=== PATIENT | male | born 1945 | race African-American/Black ===

== ENCOUNTER → 2016-06-19 | Outpatient (CLI) | payer MEDICARE, OTHER ==
[~2016-06-19] MED LIST: ALDA2525 PO; ATOR80TA41 PO; LISI-366 PO; LISI40TA PO; MIRA3350 PO; PROS5TAB2 PO; SPIR25TA3 PO; TAMS0.4C67 PO; TRIA0.1O TOP; [UNRECOGNIZED DRUG - SUPPLY]
[2016-06-19 08:59] LABS: AUTOMATED NEUTROPHIL # 2.1 TH/MM3 (1.8-7.7); BASOPHIL % 0.2 % (0.0-2.0); EOSINOPHIL # 0.3 TH/MM3 (0-0.4); EOSINOPHIL % 4.7 % (0.0-4.0); HEMATOCRIT 44.8 % (39.0-51.0); HEMO FLAGS DIFF FINAL; LYMPH % 46.7 % (9.0-44.0); LYMPHOCYTE # 2.6 TH/MM3 (1.0-4.8); MEAN CELL VOLUME 87.6 FL (80.0-100.0); MEAN CORPUSCULAR HEMOGLOBIN 29.7 PG (27.0-34.0); MEAN CORPUSCULAR HGB CONC 33.9 % (32.0-36.0); MONO % 11.7 % (0.0-8.0); NEUT % 36.7 % (16.0-70.0); PLATELET COUNT 250 TH/MM3 (150-450); RED BLOOD COUNT 5.12 MIL/MM3 (4.50-5.90); RED CELL DISTRIBUTION WIDTH 14.2 % (11.6-17.2); WHITE BLOOD COUNT 5.7 TH/MM3 (4.0-11.0)
[2016-06-19 09:31] LABS: BLOOD, URINE NEG (NEG); COMMENT (UR) CULTURE INDICATED; CULTURE IF INDICATED CULTURE INDICATED; GLUCOSE,URINE NEG (NEG); KETONE, URINE NEG (NEG); MUCUS URINE FEW /lpf (OCC); NITRITE,URINE NEG (NEG); SQUAMOUS EPITHELIAL CELL URINE <1 /hpf (0-5); URINE COLOR YELLOW (YELLW/STRAW)
[2016-06-19 09:45] LABS: ALKALINE PHOSPHATASE 73 U/L (45-117); ALT (GPT) 54 U/L (12-78); ANION GAP 8 MEQ/L (5-15); AST (GOT) 33 U/L (15-37); BICARBONATE 27.7 MEQ/L (21.0-32.0); BLOOD UREA NITROGEN 13 MG/DL (7-18); CHLORIDE 103 MEQ/L (98-107); GLOMERULAR FILTRATION RATE 67 ML/MIN (>89); GLUCOSE,FASTING 107 MG/DL (74-99); HDL CHOLESTEROL 42.4 MG/DL (40.0-60.0); LDL CHOLESTEROL 58 MG/DL (0-99); POTASSIUM 3.8 MEQ/L (3.5-5.1); SODIUM (NA) 139 MEQ/L (136-145); TOTAL BILIRUBIN ADULT 0.4 MG/DL (0.2-1.0)
[2016-06-19 17:33] LABS: HEMOGLOBIN A1b 1.8 %; HEMOGLOBIN Ao 84.4 %; HEMOGLOBIN LA1C 1.9 %; HEMOGLOBIN P3 3.9 %
== END ==
LOC: ELAB 07:14
PROVIDERS: ATTEND Family Medicine
DX: I10 Essential (primary) hypertension (principal); I65.23 Occlusion and stenosis of bilateral carotid arteries; E78.2 Mixed hyperlipidemia; G46.4 Cerebellar stroke syndrome; R73.01 Impaired fasting glucose; N40.0 Benign prostatic hyperplasia without lower urinary tract symptoms; R35.1 Nocturia; Z79.899 Other long term (current) drug therapy; Z86.73 Personal history of transient ischemic attack (TIA), and cerebral infarction without residual deficits; Z68.38 Body mass index [BMI] 38.0-38.9, adult
CPT/HCPCS: 36415; 80053; 80061; 81001; 82248; 83036; 84439; 84443; 84480; 85025; 87086

== ENCOUNTER 2018-02-20 17:19 | Observation (INO) ==
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
[2018-02-20 17:54] LABS: Baso % (Auto) 0.6 % (0.0-2.0); Eos # (Auto) 0.9 th/mm3 (0.0-0.4); Eos % (Auto) 12.2 % (0.0-4.0); Hematocrit 41.6 % (39.0-51.0); Hemoglobin 14.2 gm/dL (13.0-17.0); Lymph # (Auto) 2.6 th/mm3 (1.0-4.8); Lymph % (Auto) 33.6 % (9.0-44.0); Mean Corpuscular HGB Conc 34.2 % (32.0-36.0); Mean Corpuscular Hemoglobin 30.9 pg (27.0-34.0); Mean Corpuscular Volume 90.4 fL (80.0-100.0); Mean Platelet Volume 8.6 fL (7.0-11.0); Mono # (Auto) 0.9 th/mm3 (0.0-0.9); Mono % (Auto) 11.3 % (0.0-8.0); Neut # (Auto) 3.2 th/mm3 (1.8-7.7); Neut % (Auto) 42.3 % (16.0-70.0); Platelet Count 239 th/mm3 (150-450); Red Cell Distribution Width 14.6 % (11.6-17.2); White Blood Count 7.6 th/mm3 (4.0-11.0)
[2018-02-20 18:03] LABS: Activated Partial Thrombo Time 24.2 sec (23.4-31.7); Prothrombin Time 10.1 sec (9.8-11.6)
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
[2018-02-20 18:22] LABS: Anion Gap 4 meq/L (5-15); Blood Urea Nitrogen 14 mg/dL (7-18); Carbon Dioxide 27.6 meq/L (21.0-32.0); Chloride 103 meq/L (98-107); Glomerular Filtration Rate 64 mL/min (>89); Glucose,Random 110 mg/dL (74-106); Magnesium 1.8 mg/dL (1.5-2.5); Potassium 4.3 meq/L (3.5-5.1); Sodium 135 meq/L (136-145)
[2018-02-20 18:28] LABS: Creatine Kinase 341 U/L (39-308)
[2018-02-20 18:40] LABS: CKMB Percent 0.7 % (0.0-4.0); Creatine Kinase MB 2.5 ng/mL (0.5-3.6)
[2018-02-20] MEDS ORDERED: Bisacodyl 10 MG Supp RECTAL PRN (19:01)
[2018-02-20] MEDS ORDERED: Acetaminophen 325 MG Tablet PO PRN (19:01)
--- NOTE | 2018-02-20 19:03 | P.HPIM ---
History of Present Illness Primary Care Physician: UNKNOWN [facility] - History History Provided By: Patient - Medical History Medical History: Medical History (Last Reviewed 02/20/18 @ 17:36 by Silvia Fleming MD) Hypertension TIA (transient ischemic attack) - Surgical History Surgical History: Surgical History (Last Reviewed 02/20/18 @ 17:36 by Silvia Fleming MD) No pertinent past surgical history - Tobacco History Second Hand Smoke Exposure: No Smoking Status: Never smoker Tobacco Type: Cigarettes - Alcohol History How Often Do You Have a Drink Containing Alcohol: Never - Substance Use History Substance History: No History of Abuse - Travel History Recent Travel in the [facility] Within the Last 8 Weeks: No Recent Travel Out of the Country Within the Last 8 Weeks: No - Immunization History Tetanus Immunization: <5 Years Medications and Allergies Allergies Allergy/AdvReac Type Severity Reaction Status Date / Time No Known Allergies Allergy Verified 02/20/18 17:40 Home Medications Medication Instructions Recorded Confirmed Type atorvastatin 80 mg PO DAILY 02/08/18 02/20/18 History lisinopril 40 mg PO DAILY 02/08/18 02/20/18 History spironolacton-hydrochlorothiaz 1 tab PO DAILY 02/08/18 02/20/18 History Exam Vital signs: Vital Signs 02/20/18 17:20 Temperature 98.0 F Pulse Rate 90 Respiratory Rate 16 Blood Pressure 156/78 H Pulse Oximetry 98 Intake & Output 02/20/18 02/20/18 02/21/18 06:59 18:59 06:59 Weight 117.934 kg Results - Labs CBC & Chem 7: 02/20/18 17:30 02/20/18 17:30 Labs: Short CBC 02/20/18 Range/Units 17:30 WBC 7.6 (4.0-11.0) th/mm3 Hgb 14.2 (13.0-17.0) gm/dL Hct 41.6 (39.0-51.0) % Plt Count 239 (150-450) th/mm3 BMP 02/20/18 17:30 Sodium 135 L Potassium 4.3 Chloride 103 Carbon Dioxide 27.6 BUN 14 Creatinine 1.34 H Calcium 9.0 Cardiac Enzymes 02/20/18 Range/Units 17:30 Total Creatine Kinase 341 H (39-308) U/L CK-MB (CK-2) 2.5 (0.5-3.6) ng/mL Troponin I Less than 0.02 L (0.02-0.05) ng/mL - Imaging Impressions Cervical Spine CT 02/20/18 17:31 CONCLUSION: 1. No acute fracture or subluxation. 2. Degenerative spondylosis of the lower cervical spine, as above. 3. 2.9 cm left thyroid nodule. Consider further evaluation with outpatient thyroid ultrasound. Chest X-Ray 02/20/18 17:31 CONCLUSION: 1. Cardiomegaly. 2. No focal infiltrate or pulmonary vascular congestion. Head CT 18 17:31 CONCLUSION: 1. No acute intracranial abnormality. . Caprini VTE Risk Assessment Caprini Risk Assessment Model: Point Value = 1 Point Value = 2 Point Value = 3 Point Value = 5 Age 41-60 Minor surgery BMI > 25 kg/m2 Swollen legs Varicose veins or History of unexplained or recurrent spontaneous Oral contraceptives or hormone replacement Sepsis (< 1 month) Serious lung disease, including pneumonia (< 1 month) Abnormal pulmonary function Acute myocardial infarction Congestive heart failure (< 1 month) History of inflammatory bowel disease Medical patient at bed rest Age 61-74 Arthroscopic surgery Major open surgery (> 45 min) Laparoscopic surgery (> 45 min) Malignancy Confined to bed (> 72 hours) Immobilizing plaster cast Central venous access Age >= 75 History of VTE Family history of VTE Factor V Leiden Prothrombin [id number] Lupus anticoagulant Anticardiolipin antibodies Elevated serum homocysteine Heparin-induced thrombocytopenia Other congenital or acquired thrombophilia Stroke (< 1 month) Elective arthroplasty Hip, pelvis, or leg fracture Acute spinal cord injury (< 1 month) Prophylaxis Regimen: Total Risk Factor Score Risk Level Prophylaxis Regimen 0-1 Low Early ambulation 2 Moderate Order ONE of the following: *Sequential Compression Device (SCD) *Heparin 5000 units SQ BID 3-4 Higher Order ONE of the following medications: *Heparin 5000 units SQ TID *Enoxaparin/Lovenox 40 mg SQ daily (WT < 150 kg, CrCl > 30 mL/min) *Enoxaparin/Lovenox 30 mg SQ daily (WT < 150 kg, CrCl > 10-29 mL/min) *Enoxaparin/Lovenox 30 mg SQ BID (WT < 150 kg, CrCl > 30 mL/min) AND/OR *Sequential Compression Device (SCD) 5 or more Highest Order ONE of the following medications: *Heparin 5000 units SQ TID (Preferred with Epidurals) *Enoxaparin/Lovenox 40 mg SQ daily (WT < 150 kg, CrCl > 30 mL/min) *Enoxaparin/Lovenox 30 mg SQ daily (WT < 150 kg, CrCl > 10-29 mL/min) *Enoxaparin/Lovenox 30 mg SQ BID (WT < 150 kg, CrCl > 30 mL/min) AND *Sequential Compression Device (SCD)
[2018-02-20] MEDS ORDERED: Sod Chloride 0.9% Inj 1,000 ML IV.CONT SCH (19:15)
[2018-02-20] MEDS ORDERED: Senna/Docusate Sodium 8.6/50 MG Tablet PO SCH (21:00)
--- NOTE | 2018-02-21 20:10 | ECG ---
Date Performed: 02/20/2018 Time Performed: 17:34:03 PTAGE: 72 years EKG: Sinus rhythm NONSPECIFIC ST & T-WAVE ABNORMALITY BORDERLINE ECG PREVIOUS TRACING : 02/08/2018 13.42 Since the previous tracing, no significant change noted DOCTOR: Juan David Austin Interpretating Date/Time 02/21/2018 20:02:42
== END 2018-02-20 19:23 | disposition left against medical advice (07) ==
LOC: NEDA 17:19 → NEPE 17:19 → NEDA 19:22
PROVIDERS: ADMIT Hospitalist; ATTEND Hospitalist

== ENCOUNTER 2018-02-20 20:46 | Observation (INO) ==
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
[2018-02-20] MEDS ORDERED: Bisacodyl 10 MG Supp RECTAL PRN (22:09)
[2018-02-20] MEDS ORDERED: Acetaminophen 325 MG Tablet PO PRN (22:09)
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
[2018-02-20] MEDS: Sod Chloride 0.9% Inj 1,000 ML IV.CONT SCH (23:34)
[2018-02-21 05:47] LABS: Baso % (Auto) 0.2 % (0.0-2.0); Eos % (Auto) 12.5 % (0.0-4.0); Hematocrit 40.4 % (39.0-51.0); Hemoglobin 13.6 gm/dL (13.0-17.0); Lymph # (Auto) 2.6 th/mm3 (1.0-4.8); Lymph % (Auto) 31.7 % (9.0-44.0); Mean Corpuscular HGB Conc 33.6 % (32.0-36.0); Mean Corpuscular Hemoglobin 30.9 pg (27.0-34.0); Mean Corpuscular Volume 91.7 fL (80.0-100.0); Mean Platelet Volume 8.7 fL (7.0-11.0); Mono % (Auto) 11.8 % (0.0-8.0); Neut # (Auto) 3.7 th/mm3 (1.8-7.7); Neut % (Auto) 43.8 % (16.0-70.0); Platelet Count 232 th/mm3 (150-450); Red Cell Distribution Width 14.3 % (11.6-17.2); White Blood Count 8.4 th/mm3 (4.0-11.0)
[2018-02-21 05:52] LABS: Albumin 3.5 g/dL (3.4-5.0); Anion Gap 6 meq/L (5-15); Aspartate Aminotransferase 29 U/L (15-37); Blood Urea Nitrogen 17 mg/dL (7-18); Calcium 9.2 mg/dL (8.5-10.1); Carbon Dioxide 29.2 meq/L (21.0-32.0); Chloride 104 meq/L (98-107); Glomerular Filtration Rate 60 mL/min (>89); Glucose,Random 99 mg/dL (74-106); Sodium 139 meq/L (136-145)
[2018-02-21 05:53] LABS: Alanine Aminotransferase 33 U/L (12-78)
[2018-02-21 06:03] LABS: Alkaline Phosphatase 73 U/L (45-117); Free T4 (Free Thyroxine) 0.88 ng/dL (0.76-1.46); Total Protein 7.2 g/dL (6.4-8.2)
[2018-02-21 06:18] LABS: Bilirubin,Urine Negative (Negative); Clarity,Urine Clear (Clear); Color,Urine Yellow (Yellw/Straw); Glucose,Urine (UA) Negative (Negative); Leukocyte Esterase,Urine Small (Negative); Mucus,Urine Few /lpf (Occasional); Nitrite,Urine Negative (Negative); Specific Gravity,Urine 1.017 (1.002-1.035); Squamous Epithelial Cell,Urine 1 /hpf (0-5)
[2018-02-21] MEDS: Senna/Docusate Sodium 8.6/50 MG Tablet PO SCH ×2 (08:27→21:28)
[2018-02-21] MEDS: Sod Chloride 0.9% Inj 1,000 ML IV.CONT SCH ×2 (08:27→18:32)
--- NOTE | 2018-02-21 11:41 | ECHRPT ---
Indication: SYNCOPE CONCLUSIONS Upper normal left ventricular size. Mild concentric left ventricular hypertrophy. The left ventricular systolic function is normal with an estimated ejection fraction in the range of 55-60%. No regional wall motion abnormalities are present. Trace mitral valve regurgitation. Mild thickening of the aortic valve leaflets. There is trace tricuspid valve regurgitation. BP: / HR: Rhythm: MEASUREMENTS (Male / Female) Normal Values Technical Quality: 2D ECHO LV Diastolic Diameter PLAX 5.2 cm 4.2 - 5.9 / 3.9 - 5.3 cm LV Systolic Diameter PLAX 4.1 cm IVS Diastolic Thickness 1.4 cm 0.6 - 1.0 / 0.6 - 0.9 cm LVPW Diastolic Thickness 0.8 cm 0.6 - 1.0 / 0.6 - 0.9 cm LV Relative Wall Thickness 0.4 RV Internal Dim ED PLAX 1.6 cm LVOT Diameter 2.0 cm DOPPLER AV Peak Velocity 218.5 cm/s AV Peak Gradient 19.1 mmHg AV Mean Gradient 11.5 mmHg AV Velocity Time Integral 48.6 cm LVOT Peak Velocity 104.0 cm/s LVOT Peak Gradient 4.3 mmHg LVOT Velocity Time Integral 24.1 cm AV Area Cont Eq vti 1.6 cm AV Area Cont Eq pk 1.5 cm Mitral E Point Velocity 75.5 cm/s Mitral A Point Velocity 115.0 cm/s Mitral E to A Ratio 0.7 LV E' Lateral Velocity 8.9 cm/s Mitral E to LV E' Lateral Ratio 8.5 LV E' Septal Velocity 5.7 cm/s Mitral E to LV E' Septal Ratio 13.4 Right Atrial Pressure 10.0 mmHg FINDINGS LEFT VENTRICLE Upper normal left ventricular size. Mild concentric left ventricular hypertrophy. The left ventricular systolic function is normal with an estimated ejection fraction in the range of 55-60%. No regional wall motion abnormalities are present. RIGHT VENTRICLE Normal right ventricular size and systolic function. LEFT ATRIUM The left atrial size is normal. RIGHT ATRIUM The right atrial size is normal. ATRIAL SEPTUM Normal atrial septal thickness without atrial level shunting by limited color doppler interrogation. AORTA The aortic root and proximal ascending aorta are normal in size on limited imaging. MITRAL VALVE Structurally normal mitral valve. Trace mitral valve regurgitation. AORTIC VALVE Mild thickening of the aortic valve leaflets. Aortic valve mean gradient is 13 mmHg. TRICUSPID VALVE There is trace tricuspid valve regurgitation. PULMONARY VALVE The pulmonary valve is not well visualized. VESSELS The inferior vena cava is normal in size. PERICARDIUM No pericardial effusion. Mervin Hernandez MD (Electronically Signed) Final Date:21 February 2018 11:40
--- NOTE | 2018-02-21 13:35 | MR ---
EXAM DATE: 02/21/2018 12:52 PM EST AGE/SEX: 72 years / Male INDICATIONS: Seizures. CLINICAL DATA: This is the patient's initial encounter. Patient reports that signs and symptoms have been present for 1 day and indicates a pain score of 3/10. MEDICAL/SURGICAL HISTORY: Hypertension. Transient ischemic attack. Thyroid nodule. None. COMPARISON: Noncontrast head CT dated 02/20/2018.. TECHNIQUE: Multiplanar, multisequence examination of the brain was performed without contrast. FINDINGS: Cerebrum: There is mild generalized atrophy with ventricular size within normal limits given the degr ee of atrophy. No midline shift, mass lesion, hemorrhage or acute infarction. No extraaxial fluid c ollections are seen. The pituitary gland and suprasellar cistern are normal in configuration. The hi ppocampi appear symmetric. White Matter: There is moderate to severe periventricular and subcortical white matter signal change bilaterally. Posterior Fossa: The cerebellum and brainstem demonstrate no acute abnormality. The 4th ventricle is midline. The cerebellopontine angle is within normal limits. The cerebellar tonsils are normal in p osition. Diffusion Imaging: No areas of restricted diffusion are seen. Extracranial: The visualized sinuses are clear. There is a subcutaneous nodule in the left anterior scalp measuring 1.4 cm. CONCLUSION: 1. No acute intracranial abnormality is identified. 2. Chronic findings include generalized atrophy and moderate to severe periventricular and subcortic al white matter signal change most likely representing chronic microvascular ischemic change. Electronically signed by: David Smith MD 02/21/2018 1:33 PM EST
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
[2018-02-21] MEDS: Lisinopril 20 MG Tablet PO SCH (17:52)
--- NOTE | 2018-02-21 18:50 | MG ---
cc: Rigoberto Dudley MD, PhD TEST NUMBER: [id number] TECHNIQUE: A 17-channel EEG. DESCRIPTION: Background rhythm reveals a symmetrical alpha rhythm at first. There is some focal slowing in the theta range over the left temporal area. In the left frontal area, occasional left frontotemporal sharp activity is seen with some phase reversal. INTERPRETATION: Abnormal study consistent with possible epileptic focus in the left frontotemporal region. Rigoberto Dudley MD, PhD KENIA/olegario , 06:30 PM , 06:34 PM
--- NOTE | 2018-02-21 19:19 | US ---
EXAM DATE: 02/21/2018 7:08 PM EST AGE/SEX: 72 years / Male INDICATIONS: Trans ischemic attack. CLINICAL DATA: This is the patient's initial encounter. Patient reports that signs and symptoms have been present for 1 day and indicates a pain score of 0/10. MEDICAL/SURGICAL HISTORY: Hypertension. Transient ischemic attack. None. COMPARISON: No prior exams available for comparison. VELOCITY PARAMETERS: ICA/CCA Ratio: Right 0.7 , Left 1.0 ICA: Right 63 cm/sec, Left 85 cm/sec CCA: Right 89 cm/sec, Left 86 cm/sec ECA: Right 121 cm/sec, Left 97 cm/sec Vertebral: Right 51 cm/sec antegrade, Left 89 cm/sec antegrade FINDINGS: Right Carotid: Trace plaque at the bulb and proximal internal carotid artery..The waveforms are with in normal limits. Left Carotid: Trace plaque of the bulb and proximal internal carotid artery The waveforms are within normal limits. Other: None. CONCLUSION: 1. Right Internal Carotid Artery: No significant plaque or narrowing. 2. Left Internal Carotid Artery: No significant plaque or narrowing. Electronically signed by: David Nolasco MD 02/21/2018 7:18 PM EST
--- NOTE | 2018-02-21 20:10 | ECG ---
Date Performed: 02/21/2018 Time Performed: 00:34:32 PTAGE: 72 years EKG: Sinus rhythm MODERATE INTRAVENTRICULAR CONDUCTION DELAY NONSPECIFIC ST & T-WAVE ABNORMALITY BORDERLINE ECG PREVIOUS TRACING : 02/20/2018 21.39 Since the previous tracing, no significant change noted DOCTOR: Juan David Austin Interpretating Date/Time 02/21/2018 20:03:05
--- NOTE | 2018-02-21 20:10 | ECG ---
Date Performed: 02/20/2018 Time Performed: 21:39:37 PTAGE: 72 years EKG: SINUS TACHYCARDIA NONSPECIFIC ST & T-WAVE ABNORMALITY ABNORMAL RHYTHM ECG PREVIOUS TRACING : 02/20/2018 17.34 Since the previous tracing, no significant change noted DOCTOR: Juan David Austin Interpretating Date/Time 02/21/2018 20:02:52
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
[2018-02-21] MEDS: levETIRAcetam 500 MG Tablet PO SCH (21:28)
[2018-02-22] MEDS: Sod Chloride 0.9% Inj 1,000 ML IV.CONT SCH (03:19)
[2018-02-22] MEDS ORDERED: Tolterodine Tartrate LA 4 MG Capsule PO SCH (09:00)
[2018-02-22 10:47] LABS: Calcium 9.3 mg/dL (8.5-10.1); Carbon Dioxide 29.3 meq/L (21.0-32.0); Potassium 3.8 meq/L (3.5-5.1)
[2018-02-22] MEDS: Senna/Docusate Sodium 8.6/50 MG Tablet PO SCH (11:50)
[2018-02-22] MEDS: Lisinopril 20 MG Tablet PO SCH (11:50)
[2018-02-22] MEDS: levETIRAcetam 500 MG Tablet PO SCH (11:51)
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
== END 2018-02-22 14:29 | disposition home or self-care (01) ==
LOC: NEDA 20:46 → NEPD 20:46 → NEDA 23:04 → NEPHCDU 23:10
PROVIDERS: ADMIT Hospitalist; ATTEND Hospitalist
DX: E04.1 Nontoxic single thyroid nodule; Z87.891 Personal history of nicotine dependence; Z79.899 Other long term (current) drug therapy; G40.89 Other seizures; I10 Essential (primary) hypertension; Y93.55 Activity, bike riding; M47.892 Other spondylosis, cervical region; R82.90 Unspecified abnormal findings in urine; R94.6 Abnormal results of thyroid function studies; R55 Syncope and collapse; Z86.73 Personal history of transient ischemic attack (TIA), and cerebral infarction without residual deficits; N17.9 Acute kidney failure, unspecified; V18.4XXA Pedal cycle driver injured in noncollision transport accident in traffic accident, initial encounter; I51.7 Cardiomegaly; R42 Dizziness and giddiness